=== PATIENT | female | born 1965 | race Caucasian/White ===

== ENCOUNTER → 2019-06-28 11:53 | Outpatient (CLI) | payer OTHER, SELFPAY ==
--- NOTE | ~2019-06-28 | XR_ITS ---
EXAMINATION: XR abdomen/kub 1V DATE: 06/28/2019 12:09 INDICATION: Constipation. Unspecified upper central abdominal pain. TECHNIQUE: A supine view of the abdomen on 2 radiographs was obtained. COMPARISON: None. FINDINGS: There are no dilated loops of bowel. There is a small volume of stool in the colon. There i s no visible urolithiasis. IMPRESSION: 1. Normal bowel gas pattern. Reviewed, dictated and finalized at location A.
== END ==
PROVIDERS: PCP Family Medicine; Visit Provider Family Medicine
DX: K59.00 Constipation, unspecified (principal); R10.9 Unspecified abdominal pain; K31.84 Gastroparesis
CPT/HCPCS: 74018

== ENCOUNTER 2019-07-06 07:40 | Outpatient (CLI) | payer OTHER, SELFPAY ==
--- NOTE | ~2019-07-06 | US_ITS ---
EXAMINATION: US right upper quadrant DATE: 07/06/2019 08:24 INDICATION: Elevated liver enzymes TECHNIQUE: Multiple grayscale and Doppler ultrasound images of the abdomen were obtained. COMPARISON: 01/17/2004 FINDINGS: The head and and body of the pancreas are normal. The pancreatic tail is obscured by bowel gas. The liver demonstrates increased echogenicity, heterogenous echotexture, and decreased through t ransmission. No surface nodularity. Normal hepatopetal flow in the main portal vein. Gallbladder poly ps measure up to 5 mm. There is no gallbladder wall thickening or pericholecystic fluid. The normal c ommon bile duct measures 3 mm. There was no sonographic Hatch sign. IMPRESSION: 1. Gallbladder polyps. 2. Diffuse hepatic steatosis. Reviewed, dictated and finalized at location A.
== END 2019-07-06 07:41 | disposition home or self-care (01) ==
PROVIDERS: PCP Family Medicine; Visit Provider Family Medicine
DX: R74.8 Abnormal levels of other serum enzymes (principal)
CPT/HCPCS: 76705

== ENCOUNTER 2019-07-07 12:52 | Outpatient (CLI) | payer OTHER, SELFPAY ==
[2019-07-07 14:28] LABS: Hepatitis B Surface Antigen Negative (Negative)
[2019-07-07 14:34] LABS: HAV RESULT Negative (Negative); Hepatitis B Core IgM Result Negative (Negative)
[2019-07-07 14:46] LABS: Hepatitis C Virus Antibody Negative (Negative)
== END 2019-07-07 12:53 | disposition home or self-care (01) ==
PROVIDERS: PCP Family Medicine; Visit Provider Internal Medicine Gastroenterology
DX: R74.8 Abnormal levels of other serum enzymes (principal)
CPT/HCPCS: 36415; 80074

== ENCOUNTER 2019-07-11 01:04 | Day surgery (SDC) | payer OTHER, SELFPAY ==
[2019-07-08 10:05] VITALS: BMI 39.9
[2019-07-11 08:25] VITALS: BP 138/76; PULSE 79; RESP 16; TEMP 36.8; O2SAT 100; BMI 39.5
--- NOTE | 2019-07-11 08:32 | WPDANESEPPF ---
Anes - Initial Pre Proc Eval Procedure: Operation Date: 07/11/19 09:30 Proposed Procedures p Esophagogastroduodenoscopy - Yaya Phelps MD Date/Time: 07/11/19 08:32 Surgeon: Yaya Phelps MD Pre Op Diagnosis: nausea, weight loss Patient Data Age: 54 Gender: F Height: 5 ft 9 in Weight: 121.4 kg Last Vital Signs Pulse 79 07/11/19 08:25 Resp 16 07/11/19 08:25 BP 138/76 07/11/19 08:25 Pulse Ox 100 07/11/19 08:25 Allergies Allergy/AdvReac Type Severity Reaction Status Date / Time No Known Allergies Allergy Verified 07/11/19 08:23 Home Medications Medication Instructions Recorded Confirmed Type metoclopramide HCl 5 mg tablet 5 mg PO TID #90 tablet 06/30/19 07/08/19 Rx promethazine 25 mg tablet 25 mg PO Q8H PRN #24 tablet 06/30/19 07/08/19 Rx Patient hx anesthesia problems: none Family hx anesthesia problems: none PMFSH Past Medical History Medical History (Updated 07/11/19 @ 08:32 by Mateo Levine MD) Alcohol abuse Elevated liver enzymes Morbid obesity Surgical History Surgical History (Updated 07/11/19 @ 08:33 by Mateo Levine MD) H/O colonoscopy Family History Family History Father Malignant neoplasm of prostate Alzheimer's dementia Other Carcinoma of colon Social History Social History Social History: Smoking status: Never smoker Second hand tobacco smoke exposure: No Alcohol intake: current Drinks per week: 40 Substance use: never Substance use type: does not use Gender identity (if verbalized by the patient): Female Anes - Eval Final PreProcedure Day of Procedure 07/11/19 08:32 Patient weight: morbidly obese Heart: regular rate and rhythm Lungs: clear to auscultation Airway: Mallampati scale class II Neurological: alert and oriented Last oral intake: >/= 8 hours ASA classification: III Emergent: no Anesthetic plan: proceed Anesthesia type and monitoring: general GIVS and standard monitoring Informed Consent: The patient's anesthetic plan and its attendant risks and benefits were discussed with the patient/family/POA. Questions were solicited and answers provided to the satisfaction of the patient/family/POA.
[2019-07-11] MEDS: LACTATED RINGERS 1,000 ML 150 ML IV CONT (08:38)
--- NOTE | 2019-07-11 09:24 | WPDHPUPDATE1 ---
History and Physical Update Update Date/Time: 07/11/19 09:24 History and Physical has been reviewed, including an updated exam of the patient. There are NO changes in the patient's condition. Risks, benefits, and alternatives have been discussed and questions answered. Patient agrees to proceed with procedure.
[2019-07-11 09:40] VITALS: BP 115/74; PULSE 71; RESP 20; O2SAT 100
[2019-07-11 09:50] VITALS: BP 118/76; PULSE 73; RESP 18; O2SAT 98
[2019-07-11 10:00] VITALS: BP 137/81; PULSE 73; RESP 17; O2SAT 100
== END 2019-07-11 10:13 | disposition home or self-care (01) ==
PROVIDERS: PCP Family Medicine; Visit Provider Internal Medicine Gastroenterology
PROC: 0DJ08ZZ Inspection of Upper Intestinal Tract, Via Natural or Artificial Opening Endoscopic (ICD-10-PCS; CPT 43235; principal; 2019-07-11 09:30)
DX: K21.0 Gastro-esophageal reflux disease with esophagitis (principal); K29.50 Unspecified chronic gastritis without bleeding; F10.10 Alcohol abuse, uncomplicated; E66.9 Obesity, unspecified; Z68.39 Body mass index [BMI] 39.0-39.9, adult
CPT/HCPCS: 43239; 88305; J2001; J2704; J7120

== ENCOUNTER 2019-07-14 07:34 | Outpatient (CLI) | payer OTHER, SELFPAY ==
--- NOTE | ~2019-07-14 | MR_ITS ---
EXAMINATION: MR MRCP wo/w con/w 3D wo ind DATE: 07/14/2019 08:44 INDICATION: Elevated liver enzymes. TECHNIQUE: Magnetic resonance imaging (MRI) of the abdomen was performed . without and with 20 mL Mul tihance intravenous contrast. Sequences included coronal T2-weighted SS-FSE, coronal T2-weighted FS S S-FSE, coronal T2-weighted FS FIESTA, axial T2-weighted FS FIESTA, axial T2-weighted FIESTA, sagittal T2-weighted SS-FSE, axial T1-weighted dual-echo FSPGR, axial T2-weighted SS-FSE, axial T1-weighted L МАРИЯ, axial T2-weighted STIR FSE. Thick-slab T2-weighted FRFSE-XL images were obtained for magnetic re sonance cholangiopancreatography (MRCP). Rotating maximum intensity projection 3-D reconstructions of the volumetric data were created by the technologist. Postcontrast sequences included a time course of axial T1-weighted LAVA. COMPARISON: None. FINDINGS: ABDOMEN MRI: Heart size is normal. No pericardial or pleural effusion. Multiple gallstones filling the gallbladder which demonstrates diffuse edematous wall thickening. There is focal adenomyomatosis at the tip of t he gallbladder fundus. Diffuse hepatic steatosis with focal sparing along the ligamentum teres. Splee n, pancreas, bilateral adrenal glands and kidneys are normal. Visualized portions of the bowels inclu ding the appendix are normal. No pathologically enlarged abdominal lymphadenopathy. Mild lumbar spond ylosis. Normal bone marrow signal. ABDOMEN MRCP: The common hepatic and common bile ducts are normal in caliber each measuring up to 5 mm in maximal d iameter. There appear to be a few tiny filling defects at the distalmost common bile duct suspicious for choledocholithiasis. IMPRESSION: 1. Cholelithiasis and likely choledocholithiasis with a few tiny filling defects in the distal aspect of the common bile duct which remains within normal limits measuring up to 5 mm diameter. No intrahe patic biliary ductal dilation. 2. Edematous appearing gallbladder wall thickening but without dilation or pericholecystic inflammato ry change to suggest acute cholecystitis. This could be related to liver disease, chronic or early ac osmany cholecystitis or other generalized edema forming states. 3. Focal adenomyomatosis at the tip of the gallbladder fundus. 4. Diffuse hepatic steatosis. Reviewed, dictated and finalized at location A. IMPRESSION: 1. Cholelithiasis and likely choledocholithiasis with a few tiny filling defect s in the distal aspect of the common bile duct which remains within normal limi ts measuring up to 5 mm diameter. No intrahepatic biliary ductal dilation. 2. Edematous appearing gallbladder wall thickening but without dilation or juju cholecystic inflammatory change to suggest acute cholecystitis. This could be r elated to liver disease, chronic or early acute cholecystitis or other generali zed edema forming states. 3. Focal adenomyomatosis at the tip of the gallbladder fundus. 4. Diffuse hepatic steatosis.
[2019-07-14 08:04] LABS: Estimated Glomerular Filt Rate > 60
== END 2019-07-14 07:35 | disposition home or self-care (01) ==
PROVIDERS: PCP Family Medicine; Visit Provider Internal Medicine Gastroenterology
DX: R74.8 Abnormal levels of other serum enzymes (principal); R10.13 Epigastric pain; K80.20 Calculus of gallbladder without cholecystitis without obstruction; D13.5 Benign neoplasm of extrahepatic bile ducts; K76.0 Fatty (change of) liver, not elsewhere classified
CPT/HCPCS: 36415; 74183; 76376; A9577

== ENCOUNTER 2019-08-17 09:37 | Outpatient (CLI) | payer OTHER, SELFPAY ==
[2019-08-17 10:01] LABS: Hematocrit 43.2 % (37.0-47.0); Hemoglobin 13.9 g/dL (12.0-15.0); Mean Corpuscular HGB Conc 32.2 g/dl (32-36); Mean Corpuscular Hemoglobin 29.5 pg (26-34); Mean Corpuscular Volume 91.7 fl (80-100); Mean Platelet Volume 10.5 fl (7.4-10.4); Platelet Count Result 245 k/mm3 (150-375); Red Blood Count 4.71 M/mm3 (4.2-5.4); Red Cell Distribution Width 13.7 % (11.5-14.5); White Blood Count 6.5 K/mm3 (4.5-10.0)
[2019-08-17 10:08] LABS: INR 0.9; Prothrombin Time 12.3 Seconds (11.1-14.7)
[2019-08-17 10:13] LABS: Alanine Aminotransferase 30 U/L (4-35); Albumin Level 4.4 g/dL (3.5-5.1); Alkaline Phosphatase 120 U/L (38-126); Aspartate Amino Transferase 26 U/L (14-36); Bilirubin,Total 0.4 mg/dL (0.2-1.3); Blood Urea Nitrogen 10 mg/dL (7-17); Calcium 9.3 mg/dL (8.4-10.2); Carbon Dioxide 31 mmol/L (22-30); Chloride 106 mmol/L (98-107); Estimated Glomerular Filt Rate > 60; Glucose 100 mg/dL (65-105); Potassium 4.5 mmol/L (3.4-5.0); Sodium 141 mmol/L (137-145)
== END 2019-08-17 09:38 | disposition home or self-care (01) ==
PROVIDERS: PCP Family Medicine; Visit Provider Internal Medicine Gastroenterology
DX: R74.8 Abnormal levels of other serum enzymes (principal); R10.13 Epigastric pain
CPT/HCPCS: 36415; 80053; 85027; 85610

== ENCOUNTER 2019-08-22 00:23 | Outpatient (CLI) | payer OTHER, SELFPAY ==
[2019-08-22 16:41] LABS: SARS-CoV-2 RNA PCR Negative
== END 2019-08-22 00:24 | disposition home or self-care (01) ==
LOC: ANHCOVIDDT 00:24
PROVIDERS: PCP Family Medicine; Visit Provider Internal Medicine Gastroenterology
DX: Z01.812 Encounter for preprocedural laboratory examination (principal); Z20.828 Contact with and (suspected) exposure to other viral communicable diseases
CPT/HCPCS: 87635; C9803; U0003

== ENCOUNTER 2019-08-24 03:02 | Day surgery (SDC) | payer OTHER, SELFPAY ==
[2019-08-17 14:40] VITALS: BMI 40.6
[2019-08-24] VITALS (9 sets, daily range): BP systolic 136–158; BP diastolic 78–99; PULSE 72–91; RESP 16–18; TEMP 36.6–36.7; O2SAT 100; BMI 40.5
--- NOTE | ~2019-08-24 | XR_ITS ---
EXAMINATION: XR ERCP EXAM DATE: 08/24/2019 09:16 INDICATION: Choledocholithiasis. TECHNIQUE: Fluoroscopy used during XR ERCP performed by Dr. Yaya Phelps MD. The DAP for this procedure was 4.7 mGym2. FINDINGS: Images demonstrate cannulation, injection of the common bile duct. The common bile duct is unremarkable. Can't identify any intraluminal filling defects. No strictures. Cystic duct has a low entrance into the common bile duct. Pancreatic duct is not opacified. Correlate with procedure note. IMPRESSION: Fluoroscopy used during XR ERCP. Reviewed, dictated and finalized at location A.
[2019-08-24] MEDS: LACTATED RINGERS 1,000 ML 150 ML IV CONT (06:52)
--- NOTE | 2019-08-24 07:18 | WPDANESEPPF ---
Anes - Initial Pre Proc Eval Procedure: Operation Date: 08/24/19 07:30 Proposed Procedures p EGD & Endo Retro Cholangiopancreatogram - Yaya Phelps MD Date/Time: 08/24/19 07:18 Surgeon: Yaya Phelps MD Pre Op Diagnosis: K80.50 Patient Data Age: 54 Gender: F Height: 5 ft 9 in Weight: 124.5 kg Last Vital Signs Temp 97.9 F 08/24/19 06:37 Pulse 72 08/24/19 06:37 Resp 16 08/24/19 06:37 BP 137/78 08/24/19 06:37 Pulse Ox 100 08/24/19 06:37 Allergies Allergy/AdvReac Type Severity Reaction Status Date / Time No Known Allergies Allergy Verified 08/24/19 06:36 Home Medications Medication Instructions Recorded Confirmed Type esomeprazole magnesium [Nexium] 40 mg PO DAILY #30 cap 07/11/19 08/24/19 Rx sucralfate 1 gram tablet 1 gm PO Q6H 30 Days #120 tablet 08/10/19 08/24/19 Rx Patient hx anesthesia problems: none Family hx anesthesia problems: none PMFSH Past Medical History Medical History (Updated 07/11/19 @ 08:32 by Mateo Levine MD) Alcohol abuse Elevated liver enzymes Morbid obesity Surgical History Surgical History (Updated 07/11/19 @ 08:33 by Mateo Levine MD) H/O colonoscopy Social History Social History Social History: Smoking status: Never smoker Second hand tobacco smoke exposure: No Alcohol intake: current Drinks per week: 40 Substance use: never Substance use type: does not use Gender identity (if verbalized by the patient): Female Anes - Eval Final PreProcedure Day of Procedure 08/24/19 07:18 Patient weight: morbidly obese Heart: regular rate and rhythm Lungs: clear to auscultation Airway: Mallampati scale class II Neurological: alert and oriented Last oral intake: >/= 8 hours ASA classification: III Emergent: no Anesthetic plan: proceed Anesthesia type and monitoring: general ETT and standard monitoring Informed Consent: The patient's anesthetic plan and its attendant risks and benefits were discussed with the patient/family/POA. Questions were solicited and answers provided to the satisfaction of the patient/family/POA.
[2019-08-24] MEDS: INDOMETHACIN 50 MG SUPP.RECT 100 MG RECTAL (08:00)
[2019-08-24] MEDS: EPINEPHrine INJ 1 MG/10 ML SYRINGE 0.4 MG XX (09:06)
--- NOTE | 2019-08-24 09:08 | PM.HPGS ---
History of Present Illness History of Present Illness Consent: Risks, benefits, and alternatives have been discussed and questions answered. Patient agrees to proceed with procedure. Chief complaint: K80.50 Narrative: Grisel Holguin is a 54 year old female with epigastric pain and elevated lft's, MRCP found cholelithiasis and possible stone in bile duct, now she is doing better and repeat lft's normal Review of Systems Constitutional: Constitutional: Denies headache(s) and Denies weakness Eyes: Eyes: Denies blurry vision ENT: Reports Normal hearing present, Denies headache(s) and Denies neck pain Cardiovascular: Cardiovascular: Denies chest pain and Denies dyspnea Respiratory: Respiratory: Denies dyspnea Gastrointestinal: Gastrointestinal: Reports no additional gastrointestinal complaints Genitourinary: Genitourinary: Denies dysuria Musculoskeletal: Musculoskeletal: Denies neck pain Integumentary/Breasts: Skin/Breast: Denies dry skin Neurologic: Reports Normal hearing present, Denies headache(s) and Denies weakness Psychiatric: Psychiatric: Denies anxiety Endocrine: Endocrine: Denies change in body appearance Hematologic/Lymphatic: Hematologic/Lymphatic: Denies easy bleeding Allergic/Immunologic: Allergic/Immunologic: Denies urticaria PMFSH Past Medical History Medical History (Updated 08/24/19 @ 09:09 by Yaya Phelps MD) Alcohol abuse Cholelithiasis with choledocholithiasis Elevated liver enzymes GERD (gastroesophageal reflux disease) Morbid obesity Surgical History Surgical History (Updated 07/11/19 @ 08:33 by Mateo Levine MD) H/O colonoscopy Social History Social History Social History: Smoking status: Never smoker Second hand tobacco smoke exposure: No Alcohol intake: current Drinks per week: 40 Substance use: never Substance use type: does not use Gender identity (if verbalized by the patient): Female Meds Home Medications and Allergies Home Medications Medication Instructions Recorded Confirmed Type esomeprazole magnesium [Nexium] 40 mg PO DAILY #30 cap 07/11/19 08/24/19 Rx sucralfate 1 gram tablet 1 gm PO Q6H 30 Days #120 tablet 08/10/19 08/24/19 Rx Allergies Allergy/AdvReac Type Severity Reaction Status Date / Time No Known Allergies Allergy Verified 08/24/19 06:36 Vital Signs Vital Signs - 24 hr 08/24/19 06:37 Temperature 97.9 F Pulse Rate 72 Respiratory Rate 16 Blood Pressure 137/78 Pulse Oximetry 100 Exam Const: General: comfortable and no acute distress HENMT: General nose exam: Normal nares present Eyes: General: appearance normal, both eyes and all related structures Neck: Neck: no JVD Resp: Auscultation: clear to auscultation bilaterally Cardio: Rate: regular rate Rhythm: regular rhythm GI: Inspection: non-distended GI Palp: Yes Soft to palpation Skin: General skin exam: normal color Neuro: General: gait normal Speech: normal speech Extrem: General: normal to inspection Psych: Mental Status: mental status grossly normal Assessment and Plan Assessment and plan (1) Elevated liver enzymes: Code(s): R74.8 - Abnormal levels of other serum enzymes Status: Acute (2) Cholelithiasis with choledocholithiasis: Code(s): K80.70 - Calculus of gallbladder and bile duct without cholecystitis without obstruction Status: Acute Assessment and Plan: ercp today, lft's few days ago back to normal (3) Epigastric pain: Code(s): R10.13 - Epigastric pain Status: Acute Assessment and Plan: better with ppi and carafate (4) GERD (gastroesophageal reflux disease): Code(s): K21.9 - Gastro-esophageal reflux disease without esophagitis Status: Acute
--- NOTE | 2019-08-24 10:05 | SUR.PHASEII ---
0945 pt awake complaining of epigastric pain 08/30. orderes from Dr. white anesthesia ordered fentanyl 25mcg iv push-given at 0952. 1009 pt states pain is gone. feels lightly nauseated, dizzy with moving head from side to side. explained it is from the anesthesia.
--- NOTE | 2019-08-24 10:55 | SUR.PHASEII ---
area on left hand is bruised, anesthesia noted this after procedure, was not evident prior. patient does not recall bruise either. no chnage in area while in recovery
== END 2019-08-24 11:00 | disposition home or self-care (01) ==
PROVIDERS: PCP Family Medicine; Visit Provider Internal Medicine Gastroenterology
PROC: 0DJ08ZZ Inspection of Upper Intestinal Tract, Via Natural or Artificial Opening Endoscopic (ICD-10-PCS; CPT 43235; principal; 2019-08-24 07:30)
DX: K80.50 Calculus of bile duct without cholangitis or cholecystitis without obstruction (principal); R94.5 Abnormal results of liver function studies; K29.70 Gastritis, unspecified, without bleeding; E66.01 Morbid (severe) obesity due to excess calories; Z68.41 Body mass index [BMI] 40.0-44.9, adult
CPT/HCPCS: 47554; 43274; 74329; A9270; C2625; J0171; J1100; J2370; J2405; J2704; J3010; J7120

== ENCOUNTER 2019-09-08 06:36 | Outpatient (CLI) | payer OTHER, SELFPAY ==
--- NOTE | ~2019-09-08 | XR_ITS ---
EXAMINATION: XR abdomen/kub 1V DATE: 09/08/2019 06:57 INDICATION: Pancreatic stent. Calculus of common bile duct without cholecystitis. TECHNIQUE: A supine view of the abdomen on 2 radiographs was obtained. COMPARISON: MRCP 07/14/2019, ERCP 08/24/2019 FINDINGS: There are no dilated loops of bowel. There is a pancreatic stent in expected position in ri t abdomen. IMPRESSION: 1. Pancreatic stent in expected position. Reviewed, dictated and finalized at location A.
== END 2019-09-08 06:37 | disposition home or self-care (01) ==
PROVIDERS: PCP Family Medicine; Visit Provider Internal Medicine Gastroenterology
DX: K80.70 Calculus of gallbladder and bile duct without cholecystitis without obstruction (principal)
CPT/HCPCS: 74018

== ENCOUNTER 2019-09-24 06:34 | Outpatient (CLI) | payer OTHER, SELFPAY ==
[2019-09-24 17:27] LABS: SARS-CoV-2 RNA PCR Negative
== END 2019-09-24 06:35 | disposition home or self-care (01) ==
LOC: ANHCOVIDDT 06:34
PROVIDERS: PCP Family Medicine; Visit Provider Internal Medicine Gastroenterology
DX: Z01.812 Encounter for preprocedural laboratory examination (principal); Z11.59 Encounter for screening for other viral diseases
CPT/HCPCS: 87635; C9803; U0003

== ENCOUNTER 2019-09-27 03:24 | Day surgery (SDC) | payer OTHER, SELFPAY ==
[2019-09-20 11:30] VITALS: BMI 40.5
[2019-09-27 11:45] VITALS: BP 144/92; PULSE 83; RESP 20; TEMP 37.3; O2SAT 98
[2019-09-27] MEDS: LACTATED RINGERS 1,000 ML 150 ML IV CONT (11:49)
--- NOTE | 2019-09-27 12:05 | WPDANESEPPF ---
Anes - Initial Pre Proc Eval Procedure: Operation Date: 09/27/19 13:00 Proposed Procedures p Esophagogastroduodenoscopy With Stent Removal - Yaya Phelps MD Date/Time: 09/27/19 12:05 Surgeon: Yaya Phelps MD Pre Op Diagnosis: bilary stent removal Patient Data Age: 54 Gender: F Height: 5 ft 9 in Weight: 124.8 kg Last Vital Signs Temp 99.1 F 09/27/19 11:45 Pulse 83 09/27/19 11:45 Resp 20 09/27/19 11:45 BP 144/92 H 09/27/19 11:45 Pulse Ox 98 09/27/19 11:45 Allergies Allergy/AdvReac Type Severity Reaction Status Date / Time No Known Allergies Allergy Verified 09/20/19 11:27 Home Medications Medication Instructions Recorded Confirmed Type esomeprazole magnesium [Nexium] 40 mg PO DAILY #30 cap 07/11/19 09/20/19 Rx sucralfate 1 gram tablet 1 gm PO Q6H 30 Days #120 tablet 08/10/19 09/20/19 Rx Patient hx anesthesia problems: none Family hx anesthesia problems: none PMFSH Past Medical History Medical History (Updated 08/24/19 @ 09:09 by Yaya Phelps MD) Alcohol abuse Cholelithiasis with choledocholithiasis Elevated liver enzymes GERD (gastroesophageal reflux disease) Morbid obesity Surgical History Surgical History (Updated 07/11/19 @ 08:33 by Mateo Levine MD) H/O colonoscopy Social History Social History Social History: Smoking status: Never smoker Second hand tobacco smoke exposure: No Alcohol intake: current Drinks per week: 40 Substance use: never Substance use type: does not use Gender identity (if verbalized by the patient): Female Anes - Eval Final PreProcedure Day of Procedure 09/27/19 12:05 Patient weight: morbidly obese Heart: regular rate and rhythm Airway: Mallampati scale class II Neurological: alert and oriented Last oral intake: >/= 8 hours ASA classification: III Emergent: no Anesthetic plan: proceed Anesthesia type and monitoring: general GIVS and standard monitoring Informed Consent: The patient's anesthetic plan and its attendant risks and benefits were discussed with the patient/family/POA. Questions were solicited and answers provided to the satisfaction of the patient/family/POA.
--- NOTE | 2019-09-27 12:52 | PM.HPGS ---
History of Present Illness History of Present Illness Consent: Risks, benefits, and alternatives have been discussed and questions answered. Patient agrees to proceed with procedure. Chief complaint: bilary stent removal Narrative: Raul Holguin is a 54 year old female with elevated liver enzymes, mrcp showed GS and possible choledocholithiasis for which I did ERCP and place PD stent on 08/23, here to remove it today. Review of Systems Constitutional: Constitutional: Denies headache(s) and Denies weakness Eyes: Eyes: Denies blurry vision ENT: Reports Normal hearing present, Denies headache(s) and Denies neck pain Cardiovascular: Cardiovascular: Denies chest pain and Denies dyspnea Respiratory: Respiratory: Denies dyspnea Gastrointestinal: Gastrointestinal: Reports no additional gastrointestinal complaints Genitourinary: Genitourinary: Denies dysuria Musculoskeletal: Musculoskeletal: Denies neck pain Integumentary/Breasts: Skin/Breast: Denies dry skin Neurologic: Reports Normal hearing present, Denies headache(s) and Denies weakness Psychiatric: Psychiatric: Denies anxiety Endocrine: Endocrine: Denies change in body appearance Hematologic/Lymphatic: Hematologic/Lymphatic: Denies easy bleeding Allergic/Immunologic: Allergic/Immunologic: Denies urticaria PMFSH Past Medical History Medical History (Updated 09/27/19 @ 12:53 by Yaya Phelps MD) Alcohol abuse Cholelithiasis with choledocholithiasis Elevated liver enzymes Gastritis GERD (gastroesophageal reflux disease) Morbid obesity Surgical History Surgical History (Updated 07/11/19 @ 08:33 by Mateo Levine MD) H/O colonoscopy Social History Social History Social History: Smoking status: Never smoker Second hand tobacco smoke exposure: No Alcohol intake: current Drinks per week: 40 Substance use: never Substance use type: does not use Gender identity (if verbalized by the patient): Female Meds Home Medications and Allergies Home Medications Medication Instructions Recorded Confirmed Type esomeprazole magnesium [Nexium] 40 mg PO DAILY #30 cap 07/11/19 09/20/19 Rx sucralfate 1 gram tablet 1 gm PO Q6H 30 Days #120 tablet 08/10/19 09/20/19 Rx Allergies Allergy/AdvReac Type Severity Reaction Status Date / Time No Known Allergies Allergy Verified 09/20/19 11:27 Vital Signs Vital Signs - 24 hr 09/27/19 11:45 Temperature 99.1 F Pulse Rate 83 Respiratory Rate 20 Blood Pressure 144/92 H Pulse Oximetry 98 Exam Const: General: comfortable and no acute distress HENMT: General nose exam: Normal nares present Eyes: General: appearance normal, both eyes and all related structures Neck: Neck: no JVD Resp: Auscultation: clear to auscultation bilaterally Cardio: Rate: regular rate Rhythm: regular rhythm GI: Inspection: non-distended GI Palp: Yes Soft to palpation Skin: General skin exam: normal color Neuro: General: gait normal Speech: normal speech Extrem: General: normal to inspection Psych: Mental Status: mental status grossly normal Assessment and Plan Assessment and plan (1) Cholelithiasis with choledocholithiasis: Code(s): K80.70 - Calculus of gallbladder and bile duct without cholecystitis without obstruction Status: Acute Assessment and Plan: will removed PD stent today, eventually also will need to see a surgeon for cholecystectomy. She is asymptomatic, taking ppi for years (2) Elevated liver enzymes: Code(s): R74.8 - Abnormal levels of other serum enzymes Status: Acute (3) Gastritis: Code(s): K29.70 - Gastritis, unspecified, without bleeding Status: Acute
[2019-09-27 13:11] VITALS: BP 125/66; PULSE 94; RESP 18; O2SAT 95
[2019-09-27 13:21] VITALS: BP 128/84; PULSE 83; RESP 18; O2SAT 98
[2019-09-27 13:31] VITALS: BP 136/88; PULSE 83; RESP 18; O2SAT 98
== END 2019-09-27 13:48 | disposition home or self-care (01) ==
PROVIDERS: PCP Family Medicine; Visit Provider Internal Medicine Gastroenterology
PROC: 0DJ08ZZ Inspection of Upper Intestinal Tract, Via Natural or Artificial Opening Endoscopic (ICD-10-PCS; CPT 43235; principal; 2019-09-27 13:00)
DX: Z46.59 Encounter for fitting and adjustment of other gastrointestinal appliance and device (principal); K21.9 Gastro-esophageal reflux disease without esophagitis; R74.8 Abnormal levels of other serum enzymes; K80.70 Calculus of gallbladder and bile duct without cholecystitis without obstruction; K29.70 Gastritis, unspecified, without bleeding; E66.01 Morbid (severe) obesity due to excess calories; Z68.41 Body mass index [BMI] 40.0-44.9, adult
CPT/HCPCS: 43235; 87635; C9803; J2704; J7120; U0003

== ENCOUNTER → 2022-05-22 10:07 | Outpatient (CLI) | payer OTHER, SELFPAY ==
--- NOTE | ~2022-05-22 | MM_ITS ---
EXAMINATION: MM screening carmen BI w felecia HISTORY: Screening mammogram TECHNIQUE: Craniocaudal and mediolateral oblique 3-D tomosynthesis images were obtained and synthetic 2-D images were generated. CAD analysis was submitted and interpreted. COMPARISON: No prior mammogram is available for comparison at this institution. BREAST PARENCHYMAL COMPOSITION: There are scattered areas of fibroglandular density. FINDINGS: There is no evidence of suspicious mass, calcification, or architectural distortion to sugg est malignancy in either breast. There has been no suspicious interval change. IMPRESSION: 1. No mammographic evidence of malignancy. 2. Recommend routine screening mammography in one year. BI-RADS Category 1: Negative Reviewed, dictated and finalized at location A. AL WORKER
== END ==
PROVIDERS: PCP Family Medicine; Visit Provider Family Medicine
DX: Z12.31 Encounter for screening mammogram for malignant neoplasm of breast (principal)
CPT/HCPCS: 77063; 77067

== ENCOUNTER 2022-12-30 07:21 | Outpatient (CLI) | payer OTHER, SELFPAY ==
--- NOTE | 2022-12-30 07:39 | ECHO_ITS ---
Patient Info Name: Raul Holguin Age: 57 years : 1965 Gender: Female Ht: 69 in Wt: 300 lbs BSA: 2.64 m2 HR: 77 bpm BP: 150 / 96 mmHg Heart Rhythm: Sinus Rhythm Technical Quality: Fair Exam Date: 12/30/2022 8:04 AM Exam Location: [facility] Patient Status: Outpatient Admit Date: 12/30/2022 Staff Ordering Physician: Malgorzata Salmeron PA-C Passenger Locomotive Engineer: Shruthi Bobby RDCS Attending Provider: Malgorzata Salmeron PA-C Referring Physician: Jaron HINES; Exam Type: CA echo doppler color flow Study Info Indications R01.1 - Cardiac murmur, unspecified Complete two-dimensional, color flow and Doppler transthoracic echocardiogram is performed. Summary 1. Complete two-dimensional, color flow and Doppler transthoracic echocardiogram is performed. 2. Left ventricular chamber dimension is normal. 3. Left ventricular systolic function is normal, estimated at 65-70%. 4. The left ventricular diastolic function is grade I diastolic dysfunction. 5. E/e' 8 is minimally elevated. 6. No pulmonary hypertension, estimated pulmonary arterial systolic pressure is 15 mmHg. Left Ventricle E/e' 8 is minimally elevated. Left ventricular chamber dimension is normal. Left ventricular systolic function is normal, estimated at 65-70%. The left ventricular diastolic function is grade I diastolic dysfunction. Right Ventricle Right ventricular systolic function is normal and with normal TAPSE 2.4 cm. Right ventricular chamber dimension is normal. Left Atria Left atrial chamber dimension is normal. Right Atria Right atrial chamber dimension is normal. Aortic Valve The aortic valve is probable trileaflet. There is no aortic valve stenosis. There is no aortic valve regurgitation. Pulmonic Valve There is no pulmonic regurgitation. Mitral Valve There is no mitral valve stenosis. There is no mitral valve regurgitation. Tricuspid Valve There is no tricuspid valve regurgitation. No pulmonary hypertension, estimated pulmonary arterial systolic pressure is 15 mmHg. Pericardium/Pleural There is no pericardial effusion. Inferior Vena Cava Normal inferior vena cava with >50% collapse upon inspiration consistent with normal right atrial pressure, 5 mmHg. Aorta The aortic root size at the sinus of Valsalva is normal. Left Ventricular Outflow Tract Name Value Normal LVOT 2D LVOT Diameter 2.0 cm LVOT Doppler LVOT Peak Gradient 5 mmHg LVOT Mean Gradient 3 mmHg LVOT VTI 24 cm LVOT VTI/AV VTI Ratio 0.7 LVOT Stroke Volume 79 ml Pulmonic Valve Name Value Normal RVOT Doppler RVOT Peak Gradient 4 mmHg PV Doppler PV Peak Gradient 6 mmHg Mitral Valve
== END 2022-12-30 07:22 | disposition home or self-care (01) ==
PROVIDERS: PCP Family Medicine; Visit Provider Physician Assistant
DX: R01.1 Cardiac murmur, unspecified (principal)
CPT/HCPCS: 93306